=== PATIENT | male | born 1995 | race African-American/Black ===

== ENCOUNTER 2016-12-02 15:48 | Emergency (ER) | payer MEDICAID ==
[2016-12-02 16:09] VITALS: RESP 18
--- NOTE | 2016-12-02 17:39 | EDPHY ---
H & P Time Seen by Provider: 12/02/16 17:25 HPI/ROS: CHIEF COMPLAINT: Itching rash x3 days HISTORY OF PRESENT ILLNESS: 21-year-old immunocompetent male complaining of highly pruritic, progressive rash for the past 3 days. Initially started on his right forearm now involves his chest, left upper extremity as well as his proximal thighs. Nontender. Non weeping. Nonvesicular. No antecedent illness. No new medications. No blisters. No fever or chills. No flu-like symptoms. No intraoral lesions. No GI complaints. No ocular complaints. No genitalia complaints or rash PHYSICAL EXAM (Prior to examination, patient consented to physical exam, hands were washed and my usual and customary physical exam procedures followed) 1) GENERAL: Well-developed, well-nourished, alert and oriented. Appears to be in no acute distress. 2) HEAD: Normocephalic 3) HEENT: sclera anicteric , no injection. Oropharynx clear no lesions. Breathing comfortably. 4) LUNGS: Breathing comfortably. 5) SKIN: on the patient's bilateral upper extremities abdomen, proximal thigh, not followed dermatomal distribution, he has multiple discrete excoriated lesions are nontender, non weeping, non foul smelling, do not follow a dermatomal distribution. no involvement of the genitals. Smoking Status: Never smoked Constitutional: Initial Vital Signs Temperature (C) 36.8 C 12/02/16 16:07 Heart Rate 68 12/02/16 16:07 Respiratory Rate 18 12/02/16 16:07 Blood Pressure 130/75 H 12/02/16 16:07 O2 Sat (%) 96 12/02/16 16:07 O2 Delivery Mode Room Air Allergies/Adverse Reactions: banana Allergy (Severe, Verified 12/02/16 16:06) throat swells venom-honey bee [bee venom (honey bee)] Allergy (Severe, Verified 12/02/16 16:06 ) throat closes Home Medications: Medication Instructions Recorded Permethrin 5% [Elimite 5%] 60 kayley TP ONCE #1 cream 12/02/16 MDM/Departure - MDM ED Course/Re-evaluation: We discussed multiple possible etiologies for his rash including, but not limited to, scabies, contact dermatitis. Doubt infectious etiology the such as cellulitis. Doubt zoster. Doubt Alvarenga-Akash. Doubt varicella. We discussed possibility of other diagnoses with with early presentation possibility of development of further manifestation, therefore recommended he observe his symptoms that he develops anything new symptoms, he needs to return the ER. He feels comfortable with this plan. I do think a trial of Elimite is appropriate as I have a high clinical suspicion for scabies and also provided my usual customary scabies precautions instructions for home care. 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
[2016-12-02 18:05] VITALS: BP 137/84; PULSE 78; TEMP 98.6; O2SAT 98
== END 2016-12-02 18:05 | disposition home or self-care (01) ==
DX: B86 Scabies (principal)